=== PATIENT | female | born 1990 | race Caucasian/White ===

== ENCOUNTER → 2019-02-27 | Outpatient (CLI) | payer OTHER ==
--- NOTE | 2019-02-27 18:08 | RAD ---
Three-view right knee study Clinical indications: Right knee pain. FINDINGS: No acute fracture or dislocation or lytic process is seen. No significant right knee joint effusion is seen. No significant arthritic change is evident. IMPRESSION: No significant osseous abnormality. Electronically signed by: Jayro Slater MD (02/27/2019 6:04 PM) [id number]
== END | disposition home or self-care (01) ==
LOC: DXRAD 10:15
PROVIDERS: ATTEND Family Medicine Adult Medicine
DX: M25.561 Pain in right knee (principal)
CPT/HCPCS: 73562